=== PATIENT | female | born 1950 | race Caucasian/White ===

== ENCOUNTER → 2017-04-12 | Outpatient (CLI) | payer OTHER, MEDICARE ==
[~2017-04-12] MED LIST: ACETAMINOPHEN1 EAC4 PO; ASPIR 8181 M1 PO; ATIVAN1 MG PO; COLACE100 MG PO; COREG3.125 M1 PO; GLUCOTROL10 MG PO; HYDROCODON-ACE1 EAC7 PO; LEVO-T75 MCG PO; TRANDOLAPRIL4 MG PO; VERAPAMIL ER300 MG PO; ZOCOR20 MG PO
[2017-04-12 10:23] LABS: BASE EXCESS 3.5 mEq/L (-3 to +3); BICARBONATE 28.5 mEq/L (22-26); CARBOXY HGB 2.2 % (0-5); METHEMOGLOBIN 1.4 % (0-1.5); PCO2 44 mm Hg (35-45); PO2 77 mm Hg (80-100); SITE RR; pH 7.42 (7.35-7.45)
[2017-04-12 10:24] LABS: COMMENTS - BLOOD GASES NAC+; FI02 21 %
== END | disposition home or self-care (01) ==
LOC: RES 09:54
PROVIDERS: Thoracic Surgery (Cardiothoracic Vascular Surgery)
DX: R91.8 Other nonspecific abnormal finding of lung field (principal)
CPT/HCPCS: 36600; 82803; 94060; 94726; 94729

== ENCOUNTER → 2017-04-12 | Outpatient (CLI) | payer MEDICARE | END | disposition home or self-care (01) | LOC: CDC 11:51 | DX: Z01.810 Encounter for preprocedural cardiovascular examination (principal); R91.8 Other nonspecific abnormal finding of lung field | CPT/HCPCS: 93000 ==

== ENCOUNTER 2017-04-15 09:45 | Day surgery (SDC) | payer OTHER, MEDICARE ==
[~2017-04-15] VITALS: Ht 162.6 cm; Wt 105.3 kg
[~2017-04-15 09:45] MED LIST changes: -COLACE100 MG PO; -HYDROCODON-ACE1 EAC7 PO
[2017-04-15 10:30] VITALS: BP 181/84
[2017-04-15 10:30] LABS: BASOPHIL COUNT 0.1 K/uL (0-0.1); EOSINOPHIL (%) 1.8 % (0-5); EOSINOPHIL COUNT 0.3 K/uL (0-0.3); HEMATOCRIT 42.4 % (36.0-46.0); IMMATURE GRANULOCYTE (%) 0.5 % (0.0-0.7); IMMATURE GRANULOCYTE COUNT 0.1 K/uL; INSTRUMENT ABS NEUTROPHIL CT 11.1 K/uL; LYMPHOCYTE COUNT 1.4 K/uL (1.0-2.8); MCH 28.6 PG (29.0-34.0); MCHC 30.9 G/DL (30.0-36.0); MCV 92.6 FL (83-99); MEAN PLAT.VOLUME 10.1 uM^3 (9.5-12.4); MONOCYTE (%) 6.9 % (3-12); NEUTROPHIL (%) 80.4 % (45-76); NEUTROPHIL COUNT 11.1 K/uL (1.8-6.4); PLATELET COUNT 399 K/uL (156-360); RBC DIS.WIDTH-CV 14.6 % (11.8-14.6); RBC DIS.WIDTH-SD 49.5 % (39-53); RED BLOOD COUNT 4.58 M/uL (3.80-5.20); WHITE BLOOD COUNT 13.9 K/uL (4.1-10.2)
[2017-04-15 10:37] LABS: INTER. NORMALIZED RATIO 1.1; PROTHROMBIN TIME 11.7 SEC (10.2-12.9)
[2017-04-15 10:52] LABS: ANION GAP 10 MEQ/L (2-14); CHLORIDE 104 MEQ/L (99-109); POTASSIUM 4.7 MEQ/L (3.7-5.4); SAMPLE HEMOLYSIS CHECK 0; SAMPLE ICTERIC CHECK 0; SAMPLE LIPEMIA CHECK 0; SODIUM 141 MEQ/L (136-147); TOTAL BILIRUBIN 0.5 MG/DL (0.0-1.0)
[2017-04-15 10:58] LABS: ALKALINE PHOSPHATASE 119 IU/L (3-129); GFR ESTIMATE (CALCULATED) > 59 mL/min/; GLUCOSE 177 mg/dL (70-99); UREA NITROGEN (BUN) 13 mg/dL (9-23)
[2017-04-15] MEDS ORDERED: COLACE100 MG PO (13:12)
[2017-04-15] MEDS ORDERED: HYDROCODON-ACE1 EAC7 PO (13:12)
[2017-04-15 13:15] LABS: POINT-OF-CARE METER ID UU13113675
[2017-04-15 13:56] VITALS: BP 158/68
[2017-04-15 14:30] VITALS: BP 162/74
== END 2017-04-15 14:52 | disposition home or self-care (01) ==
LOC: SDC
PROVIDERS: Thoracic Surgery (Cardiothoracic Vascular Surgery)
DX: C34.11 Malignant neoplasm of upper lobe, right bronchus or lung (principal); C77.1 Secondary and unspecified malignant neoplasm of intrathoracic lymph nodes; I10 Essential (primary) hypertension; E03.9 Hypothyroidism, unspecified; E11.9 Type 2 diabetes mellitus without complications; E78.5 Hyperlipidemia, unspecified; M48.061 Spinal stenosis, lumbar region without neurogenic claudication; Z80.51 Family history of malignant neoplasm of kidney; E66.9 Obesity, unspecified; Z68.39 Body mass index [BMI] 39.0-39.9, adult; K21.9 Gastro-esophageal reflux disease without esophagitis; Z87.891 Personal history of nicotine dependence; Z79.82 Long term (current) use of aspirin; Z79.84 Long term (current) use of oral hypoglycemic drugs
CPT/HCPCS: 80053; 82948; 85025; 85610; 86850; 86900; 86901; 87070; 87205; 88305; 88341 TC; 88342 TC; J0131; J0690; J1100; J1885; J2250; J2405

== ENCOUNTER → 2017-07-13 | Outpatient (CLI) | payer MEDICARE ==
[~2017-07-13] MED LIST changes: +COLACE100 MG PO; +COMPAZINE10 MG PO; +HYDROCODON-ACE1 EAC7 PO; +XARELTO15 MG PO
== END | disposition home or self-care (01) ==
LOC: CDC 11:16
DX: Z01.810 Encounter for preprocedural cardiovascular examination (principal); R00.0 Tachycardia, unspecified; R94.31 Abnormal electrocardiogram [ECG] [EKG]
CPT/HCPCS: 93000

== ENCOUNTER 2017-07-20 18:57 | Inpatient (IN) | payer OTHER, MEDICARE ==
[~2017-07-20] VITALS: Ht 154.9 cm; Wt 93.0 kg
[~2017-07-20 18:57] MED LIST changes: -XARELTO15 MG PO; +XARELTO20 MG PO
[2017-07-20 19:09] LABS: HEMATOCRIT 29.3 % (36.0-46.0); HEMOGLOBIN 9.5 G/DL (11.9-15.5); MCH 30.4 PG (29.0-34.0); MCHC 32.4 G/DL (30.0-36.0); MCV 93.9 FL (83-99); RBC DIS.WIDTH-CV 21.3 % (11.8-14.6); RBC DIS.WIDTH-SD 71.2 % (39-53); RED BLOOD COUNT 3.12 M/uL (3.80-5.20); WHITE BLOOD COUNT 4.3 K/uL (4.1-10.2)
[2017-07-20 19:11] LABS: BASOPHIL (%) 0.2 % (0-1); EOSINOPHIL (%) 0.9 % (0-5); IMMATURE GRANULOCYTE (%) 0.2 % (0.0-0.7); LYMPHOCYTE COUNT 0.6 K/uL (1.0-2.8); MONOCYTE (%) 16.3 % (3-12); MONOCYTE COUNT 0.7 K/uL (0-0.8); NEUTROPHIL (%) 68.4 % (45-76); NEUTROPHIL COUNT 2.9 K/uL (1.8-6.4); PLATELET COUNT 118 K/uL (156-360)
[2017-07-20 19:19] LABS: AMYLASE 26 IU/L (1-118); CHLORIDE 104 mEq/L (99-109); POTASSIUM 3.9 mEq/L (3.7-5.4); SODIUM 137 mEq/L (136-147)
[2017-07-20 19:21] LABS: GLUCOSE 143 mg/dL (70-99)
[2017-07-20 19:24] LABS: SERUM ETHYL ALCOHOL < 10 mg/dL
[2017-07-20 19:25] LABS: CREATININE 0.7 mg/dL (0.6-1.3); GFR ESTIMATE (CALCULATED) > 59 mL/min/; UREA NITROGEN (BUN) 16 mg/dL (9-23)
[2017-07-20 19:28] LABS: LIPASE 7 U/L (1.0-51.0)
[2017-07-20 19:31] LABS: TROP-I INTERPRETATION INDETERMINATE; TROPONIN-I 0.36 ng/mL (0.0-0.30)
[2017-07-20 19:35] LABS: INTER. NORMALIZED RATIO 1.7
[2017-07-20 19:37] LABS: PTT 29.2 SEC (25-37)
[2017-07-20 21:21] LABS: APPEARANCE CLEAR ((CLEAR)); BILIRUBIN NEGATIVE; BLOOD SMALL; COLOR YELLOW ((YELLOW)); GLUCOSE (STRIP) NEGATIVE; KETONES 20; LEUKOCYTES NEGATIVE; NITRITE NEGATIVE; PROTEIN (STRIP) NEGATIVE; UROBILINOGEN 0.2 MG/DL (0.2-1.0)
[2017-07-20 21:25] LABS: BACTERIA NONE SEEN /HPF; EPITHELIAL CELLS RARE /HPF; MUCUS TRACE /LPF; RED BLOOD CELLS 0-5 /HPF (0-5); UCUL ADDED? NO; WHITE BLOOD CELLS 0-5 /HPF (0-5)
[2017-07-20] MEDS ORDERED: GLIPIZIDE XL10 MG PO (21:45)
[2017-07-20] MEDS ORDERED: CLONAZEPAM1 MG PO (21:50)
[2017-07-20] MEDS ORDERED: BUPROPION XL150 MG PO (21:52)
[2017-07-20] MEDS ORDERED: CILOSTAZOL50 MG PO (21:52)
[2017-07-20] MEDS ORDERED: OMEPRAZOLE40 M1 PO (21:53)
[2017-07-20 21:56] LABS: AMPHETAMINE NEGATIVE (500 ng/mL); BENZODIAZEPINES NEGATIVE (150 ng/mL); COCAINE NEGATIVE (150 ng/mL); METHAMPHETAMINE NEGATIVE (500 ng/mL); OPIATES (MORPHINE) PRESUMPTIVE POSITIVE (100 ng/mL); PHENCYCLIDINE NEGATIVE (25 ng/mL); THC CANNABINOIDS NEGATIVE (50 ng/mL); TRICYCLIC ANTIDEPRESSANTS NEGATIVE (300 ng/mL)
[2017-07-20 21:57] LABS: BARBITURATES NEGATIVE (200 ng/mL); BUPRENORPHINE NEGATIVE (10 ng/mL); METHADONE NEGATIVE (200 ng/mL); OXYCODONE NEGATIVE (100 ng/mL); PROPOXYPHENE NEGATIVE (300 ng/mL)
[2017-07-20 22:03] LABS: SPECIFIC GRAVITY 1.072 (1.000-1.030)
[2017-07-21] VITALS (7 sets, daily range): BP systolic 101–176; BP diastolic 54–87
[2017-07-21 00:13] LABS: HDL CHOLESTEROL 44 MG/DL (Desirable>=50); LDL CHOLESTEROL 116 mg/dL (Desirable<100); NON-HDL CHOLESTEROL 150 mg/dL (Desirable<160); TOTAL CHOLESTEROL 194 mg/dL (Desirable<200); TRIGLYCERIDES 172 MG/DL (Normal: <150)
[2017-07-21 02:08] LABS: TROP-I INTERPRETATION INDETERMINATE; TROPONIN-I 0.39 ng/mL (0.0-0.30)
[2017-07-21 06:57] LABS: HEMOGLOBIN A1c (GLYCOHEMOGLOB) 7.7 % HGB (Below 5.7)
[2017-07-21 07:03] LABS: HEMOGLOBIN 9.2 G/DL (11.9-15.5); MCH 30.1 PG (29.0-34.0); MCHC 31.7 G/DL (30.0-36.0); MCV 94.8 FL (83-99); PLATELET COUNT 117 K/uL (156-360); RBC DIS.WIDTH-CV 21.7 % (11.8-14.6); RBC DIS.WIDTH-SD 73.4 % (39-53); RED BLOOD COUNT 3.06 M/uL (3.80-5.20); WHITE BLOOD COUNT 3.3 K/uL (4.1-10.2)
[2017-07-21 07:34] LABS: TROP-I INTERPRETATION INDETERMINATE; TROPONIN-I 0.37 ng/mL (0.0-0.30)
[2017-07-22 04:26] VITALS: BP 142/66
[2017-07-22 05:58] LABS: BASOPHIL (%) 0.5 % (0-1); EOSINOPHIL (%) 1.2 % (0-5); EOSINOPHIL COUNT 0.1 K/uL (0-0.3); HEMATOCRIT 29.5 % (36.0-46.0); HEMOGLOBIN 9.5 G/DL (11.9-15.5); IMMATURE GRANULOCYTE (%) 0.2 % (0.0-0.7); LYMPHOCYTE (%) 11.5 % (15-42); LYMPHOCYTE COUNT 0.5 K/uL (1.0-2.8); MCH 30.7 PG (29.0-34.0); MCHC 32.2 G/DL (30.0-36.0); MCV 95.5 FL (83-99); MONOCYTE COUNT 0.7 K/uL (0-0.8); NEUTROPHIL (%) 69.6 % (45-76); NEUTROPHIL COUNT 2.8 K/uL (1.8-6.4); PLATELET COUNT 126 K/uL (156-360); RBC DIS.WIDTH-CV 22.1 % (11.8-14.6); RBC DIS.WIDTH-SD 75.3 % (39-53); RED BLOOD COUNT 3.09 M/uL (3.80-5.20)
[2017-07-22 06:20] LABS: CHLORIDE 103 MEQ/L (99-109); CREATININE 0.7 MG/DL (0.6-1.3); GFR ESTIMATE (CALCULATED) > 59 mL/min/; GLUCOSE 160 mg/dL (70-99); POTASSIUM 3.8 MEQ/L (3.7-5.4); SODIUM 139 MEQ/L (136-147); UREA NITROGEN (BUN) 13 mg/dL (9-23)
[2017-07-22 08:18] VITALS: BP 116/77
[2017-07-22 11:57] VITALS: BP 110/22
[2017-07-22 16:23] VITALS: BP 110/61
[2017-07-22 19:09] VITALS: BP 128/75
[2017-07-22 23:31] VITALS: BP 127/59
[2017-07-23 04:30] VITALS: BP 139/63
[2017-07-23 08:20] VITALS: BP 104/59
[2017-07-23] MEDS ORDERED: ZOCOR20 MG PO (12:27)
[2017-07-23] MEDS ORDERED: LOPRESSOR25 MG PO (12:27)
[2017-07-23] MEDS ORDERED: ASPIRIN EC325 MG PO (12:28)
[2017-07-23] MEDS ORDERED: LEVEMIR100 UNIT/2 SC (12:28)
[2017-07-23] MEDS ORDERED: LISINOPRIL40 MG PO ×2 (12:28→13:55)
[2017-07-23 12:34] VITALS: BP 104/57
[2017-07-23] MEDS ORDERED: FAMOTIDINE40 MG PO (13:23)
[2017-07-23] MEDS ORDERED: LIPITOR80 MG PO (14:16)
[2017-07-23] MEDS ORDERED: NOVOLOG 10100 UNITS/ SC (14:19)
[2017-07-23] MEDS ORDERED: APRESOLINE10 MG IV (14:21)
[2017-07-23] MEDS ORDERED: TYLENOL REGULA325 MG PO (14:23)
[2017-07-23] MEDS ORDERED: COREG3.125 M1 PO (14:26)
[2017-07-23] MEDS ORDERED: TRANDOLAPRIL4 MG PO (14:27)
[2017-07-23] MEDS ORDERED: COMPAZINE10 MG PO (14:29)
[2017-07-23] MEDS ORDERED: OMEPRAZOLE40 M1 PO (14:30)
[2017-07-23] MEDS ORDERED: ZESTRIL20 MG PO (14:31)
== END 2017-07-23 14:12 | DRG 65 ==
LOC: EME → EDBD 18:57 → EME 18:57 → EDOF 22:34 → 4EAST 22:34 → ENRESERV 22:38 → 4EAST 07-21 00:37
PROVIDERS: Hospitalist; Internal Medicine
DX: I63.40 Cerebral infarction due to embolism of unspecified cerebral artery (principal); G81.91 Hemiplegia, unspecified affecting right dominant side; R13.12 Dysphagia, oropharyngeal phase; R47.01 Aphasia; C79.51 Secondary malignant neoplasm of bone; I47.1 Supraventricular tachycardia; I48.0 Paroxysmal atrial fibrillation; E11.51 Type 2 diabetes mellitus with diabetic peripheral angiopathy without gangrene; E11.621 Type 2 diabetes mellitus with foot ulcer; L97.519 Non-pressure chronic ulcer of other part of right foot with unspecified severity; I10 Essential (primary) hypertension; E78.2 Mixed hyperlipidemia; I25.10 Atherosclerotic heart disease of native coronary artery without angina pectoris; I70.235 Atherosclerosis of native arteries of right leg with ulceration of other part of foot; E03.9 Hypothyroidism, unspecified; F39 Unspecified mood [affective] disorder; R29.810 Facial weakness; R29.709 NIHSS score 9; Z79.01 Long term (current) use of anticoagulants; Z79.82 Long term (current) use of aspirin; Z79.84 Long term (current) use of oral hypoglycemic drugs; Z85.118 Personal history of other malignant neoplasm of bronchus and lung; Z86.718 Personal history of other venous thrombosis and embolism; Z87.891 Personal history of nicotine dependence
CPT/HCPCS: 70450; 70496; 70498; 70553; 74230; 80047; 80048; 80061; 81003; 82150; 82948; 83036; 83690; 84484; 84999; 85025; 85027; 85610; 85730; 86850; 86900; 86901; 92611 GN; 93005; 93306; 94799; 97530 GO; 97530 GP; 99281; 99285; G0480; J0360

== ENCOUNTER 2017-07-23 10:49 | Inpatient (IN) | payer OTHER, MEDICARE ==
[~2017-07-23] VITALS: Ht 162.6 cm; Wt 90.3 kg
[~2017-07-23 10:49] MED LIST changes: +BUPROPION XL150 MG PO; +CILOSTAZOL50 MG PO; +CLONAZEPAM1 MG PO; +GLIPIZIDE XL10 MG PO; +OMEPRAZOLE40 M1 PO
[2017-07-23] MEDS ORDERED: ZOCOR20 MG PO (12:27)
[2017-07-23] MEDS ORDERED: LOPRESSOR25 MG PO (12:27)
[2017-07-23] MEDS ORDERED: ASPIRIN EC325 MG PO (12:28)
[2017-07-23] MEDS ORDERED: LISINOPRIL40 MG PO ×2 (12:28→13:55)
[2017-07-23] MEDS ORDERED: LEVEMIR100 UNIT/2 SC (12:28)
[2017-07-23] MEDS ORDERED: FAMOTIDINE40 MG PO (13:23)
[2017-07-23] MEDS ORDERED: LIPITOR80 MG PO (14:16)
[2017-07-23] MEDS ORDERED: NOVOLOG 10100 UNITS/ SC (14:19)
[2017-07-23 14:21] VITALS: BP 96/55
[2017-07-23] MEDS ORDERED: APRESOLINE10 MG IV (14:21)
[2017-07-23] MEDS ORDERED: TYLENOL REGULA325 MG PO (14:23)
[2017-07-23] MEDS ORDERED: COREG3.125 M1 PO (14:26)
[2017-07-23] MEDS ORDERED: TRANDOLAPRIL4 MG PO (14:27)
[2017-07-23] MEDS ORDERED: COMPAZINE10 MG PO (14:29)
[2017-07-23] MEDS ORDERED: OMEPRAZOLE40 M1 PO (14:30)
[2017-07-23] MEDS ORDERED: ZESTRIL20 MG PO (14:31)
[2017-07-24 00:23] VITALS: BP 106/56
[2017-07-24 06:03] VITALS: BP 143/86
[2017-07-24 07:51] LABS: HEMATOCRIT 29.9 % (36.0-46.0); HEMOGLOBIN 9.6 G/DL (11.9-15.5); MCH 30.9 PG (29.0-34.0); MCHC 32.1 G/DL (30.0-36.0); MCV 96.1 FL (83-99); PLATELET COUNT 142 K/uL (156-360); RBC DIS.WIDTH-CV 21.7 % (11.8-14.6); RBC DIS.WIDTH-SD 75.3 % (39-53); RED BLOOD COUNT 3.11 M/uL (3.80-5.20); WHITE BLOOD COUNT 5.6 K/uL (4.1-10.2)
[2017-07-24 08:40] LABS: ALBUMIN 3.3 G/DL (3.2-4.8); ALKALINE PHOSPHATASE 98 IU/L (3-129); ALT (GPT) 16 IU/L (3-49); AST (GOT) 19 IU/L (2-34); CHLORIDE 105 MEQ/L (99-109); CREATININE 0.8 MG/DL (0.6-1.3); GFR ESTIMATE (CALCULATED) > 59 mL/min/; GLUCOSE 162 mg/dL (70-99); SODIUM 142 MEQ/L (136-147); TOTAL BILIRUBIN 0.8 MG/DL (0.0-1.0); TOTAL PROTEIN 6.2 G/DL (6.4-8.3)
[2017-07-24 08:42] LABS: UREA NITROGEN (BUN) 26 mg/dL (9-23)
[2017-07-24 15:02] VITALS: BP 102/51
[2017-07-25 06:24] VITALS: BP 147/66
[2017-07-25 06:32] LABS: HEMOGLOBIN 9.8 G/DL (11.9-15.5); MCH 30.5 PG (29.0-34.0); MCHC 31.6 G/DL (30.0-36.0); MCV 96.6 FL (83-99); PLATELET COUNT 152 K/uL (156-360); RBC DIS.WIDTH-CV 21.5 % (11.8-14.6); RBC DIS.WIDTH-SD 74.7 % (39-53); RED BLOOD COUNT 3.21 M/uL (3.80-5.20)
[2017-07-25 13:20] LABS: ALBUMIN 3.4 G/DL (3.2-4.8); ALKALINE PHOSPHATASE 108 IU/L (3-129); ALT (GPT) 18 IU/L (3-49); AST (GOT) 19 IU/L (2-34); CHLORIDE 104 MEQ/L (99-109); CREATININE 0.7 MG/DL (0.6-1.3); GFR ESTIMATE (CALCULATED) > 59 mL/min/; GLUCOSE 221 mg/dL (70-99); POTASSIUM 3.9 MEQ/L (3.7-5.4); SODIUM 141 MEQ/L (136-147); TOTAL BILIRUBIN 0.7 MG/DL (0.0-1.0); TOTAL PROTEIN 6.4 G/DL (6.4-8.3); UREA NITROGEN (BUN) 26 mg/dL (9-23)
[2017-07-25 15:25] VITALS: BP 120/59
== END 2017-07-25 17:31 | DRG 57 ==
LOC: 3WEST 10:49 → ENRESERV 07-25 11:24 → CANRESERV 07-25 11:24 → 3WEST 07-25 17:31
PROVIDERS: Hospitalist; Physical Medicine & Rehabilitation Pain Medicine
PROC: F07M0ZZ Range of Motion and Joint Mobility Treatment of Musculoskeletal System - Whole Body (ICD-10-PCS; principal; 2017-07-23)
DX: I69.351 Hemiplegia and hemiparesis following cerebral infarction affecting right dominant side (principal); I69.320 Aphasia following cerebral infarction; I69.391 Dysphagia following cerebral infarction; R13.10 Dysphagia, unspecified; I69.322 Dysarthria following cerebral infarction; R26.2 Difficulty in walking, not elsewhere classified; R41.82 Altered mental status, unspecified; B37.0 Candidal stomatitis; C34.91 Malignant neoplasm of unspecified part of right bronchus or lung; C79.51 Secondary malignant neoplasm of bone; M84.58XA Pathological fracture in neoplastic disease, other specified site, initial encounter for fracture; K59.00 Constipation, unspecified; K64.8 Other hemorrhoids; K92.1 Melena; D64.9 Anemia, unspecified; D69.6 Thrombocytopenia, unspecified; I10 Essential (primary) hypertension; E78.00 Pure hypercholesterolemia, unspecified; E03.9 Hypothyroidism, unspecified; R74.8 Abnormal levels of other serum enzymes; E66.9 Obesity, unspecified; Z68.34 Body mass index [BMI] 34.0-34.9, adult; E11.9 Type 2 diabetes mellitus without complications; Z92.21 Personal history of antineoplastic chemotherapy; Z79.01 Long term (current) use of anticoagulants; Z79.4 Long term (current) use of insulin; Z79.82 Long term (current) use of aspirin
CPT/HCPCS: 70450; 71046; 80053; 81003; 82948; 85027; 92523 GN; 97530 GP; J1815

== ENCOUNTER 2017-07-25 11:47 | Inpatient (IN) | payer OTHER, MEDICARE ==
[~2017-07-25 11:47] MED LIST changes: +APRESOLINE10 MG IV; +ASPIRIN EC325 MG PO; +FAMOTIDINE40 MG PO; +LEVEMIR100 UNIT/2 SC; +LIPITOR80 MG PO; +LISINOPRIL40 MG PO; +LOPRESSOR25 MG PO; +NOVOLOG 10100 UNITS/ SC; +TYLENOL REGULA325 MG PO; +ZESTRIL20 MG PO
[2017-07-25 19:41] VITALS: BP 114/65
[2017-07-25 20:20] LABS: HEMATOCRIT 30.3 % (36.0-46.0); HEMOGLOBIN 9.7 G/DL (11.9-15.5); MCV 96.5 FL (83-99)
[2017-07-25 20:35] VITALS: BP 102/62
[2017-07-26] VITALS (7 sets, daily range): BP systolic 122–150; BP diastolic 55–97
[2017-07-26 05:40] LABS: HEMATOCRIT 29.2 % (36.0-46.0); HEMOGLOBIN 9.2 G/DL (11.9-15.5); MCH 30.6 PG (29.0-34.0); MCHC 31.5 G/DL (30.0-36.0); PLATELET COUNT 169 K/uL (156-360); RBC DIS.WIDTH-SD 76.4 % (39-53); RED BLOOD COUNT 3.01 M/uL (3.80-5.20); WHITE BLOOD COUNT 6.4 K/uL (4.1-10.2)
[2017-07-26 06:05] LABS: CHLORIDE 104 MEQ/L (99-109); CREATININE 0.9 MG/DL (0.6-1.3); GFR ESTIMATE (CALCULATED) > 59 mL/min/; GLUCOSE 150 mg/dL (70-99); POTASSIUM 4.1 MEQ/L (3.7-5.4); SODIUM 142 MEQ/L (136-147); UREA NITROGEN (BUN) 30 mg/dL (9-23)
[2017-07-27 03:36] VITALS: BP 122/57
[2017-07-27 07:36] VITALS: BP 133/67
[2017-07-27 12:04] VITALS: BP 138/67
[2017-07-27 13:43] LABS: HDL CHOLESTEROL 35 MG/DL (Desirable>=50); LDL CHOLESTEROL 119 mg/dL (Desirable<100); NON-HDL CHOLESTEROL 156 mg/dL (Desirable<160); TOTAL CHOLESTEROL 191 mg/dL (Desirable<200); TRIGLYCERIDES 187 MG/DL (Normal: <150)
[2017-07-27 14:06] LABS: HEMOGLOBIN A1c (GLYCOHEMOGLOB) 7.2 % (Below 5.7)
[2017-07-27 15:32] VITALS: BP 135/72
[2017-07-27 20:06] VITALS: BP 140/71; BP 164/83
[2017-07-27 23:43] VITALS: BP 124/74
[2017-07-28 04:31] VITALS: BP 142/72
[2017-07-28 08:08] VITALS: BP 159/70
[2017-07-28 16:34] VITALS: BP 116/60
[2017-07-29 00:43] VITALS: BP 112/58
[2017-07-29 07:25] VITALS: BP 164/78
[2017-07-29] MEDS ORDERED: MYCOSTATIN 100,60 ML MM (09:17)
[2017-07-29] MEDS ORDERED: ANUCORT-HC25 MG PR (09:20)
== END 2017-07-29 15:10 | DRG 64 ==
LOC: 4EAST 11:47 → ENRESERV 11:48 → CANRESERV 11:48 → ENRESERV 11:55 → 4EAST 12:23 → ENRESERV 15:36 → 3EAST 16:44 → 5SOUTH 16:44 → 3EAST 17:30 → ENRESERV 07-26 09:37 → 5SOUTH 07-26 15:27 → ENPENDDIS 07-29 10:00 → 5SOUTH 07-29 15:10
PROVIDERS: Hospitalist; Specialist
DX: I61.8 Other nontraumatic intracerebral hemorrhage (principal); G93.40 Encephalopathy, unspecified; G81.91 Hemiplegia, unspecified affecting right dominant side; R47.01 Aphasia; C79.51 Secondary malignant neoplasm of bone; M84.58XA Pathological fracture in neoplastic disease, other specified site, initial encounter for fracture; C34.11 Malignant neoplasm of upper lobe, right bronchus or lung; K92.1 Melena; F05 Delirium due to known physiological condition; I67.82 Cerebral ischemia; R29.810 Facial weakness; E78.5 Hyperlipidemia, unspecified; E78.00 Pure hypercholesterolemia, unspecified; E03.9 Hypothyroidism, unspecified; I10 Essential (primary) hypertension; I48.2 Chronic atrial fibrillation; I73.9 Peripheral vascular disease, unspecified; I77.1 Stricture of artery; K64.8 Other hemorrhoids; R13.12 Dysphagia, oropharyngeal phase; I25.10 Atherosclerotic heart disease of native coronary artery without angina pectoris; D63.0 Anemia in neoplastic disease; M48.00 Spinal stenosis, site unspecified; E66.3 Overweight; I67.89 Other cerebrovascular disease; E11.9 Type 2 diabetes mellitus without complications; Z98.62 Peripheral vascular angioplasty status; Z79.01 Long term (current) use of anticoagulants; Z86.718 Personal history of other venous thrombosis and embolism; Z68.33 Body mass index [BMI] 33.0-33.9, adult; Z92.21 Personal history of antineoplastic chemotherapy; Z92.3 Personal history of irradiation; Z86.73 Personal history of transient ischemic attack (TIA), and cerebral infarction without residual deficits
CPT/HCPCS: 70450; 80048; 80061; 82948; 83036; 85014; 85018; 85027; 92507 GN; 92610 GN; J1815

== ENCOUNTER 2017-08-01 09:55 | Inpatient (IN) | payer OTHER, MEDICARE ==
[~2017-08-01] VITALS: Ht 172.7 cm; Wt 99.3 kg
[~2017-08-01 09:55] MED LIST changes: +ANUCORT-HC25 MG PR; +MYCOSTATIN 100,60 ML MM
[2017-08-01 10:53] LABS: BICARBONATE 26.5 mEq/L (22-26); CARBOXY HGB 2.3 % (0-5); PCO2 40 mm Hg (35-45); PO2 57 mm Hg (80-100); pH 7.43 (7.35-7.45)
[2017-08-01 10:54] LABS: COMMENTS - BLOOD GASES A+C+; DEVICE RA; SITE RR; TOTAL RESP RATE 18 resp/min
[2017-08-01 11:12] LABS: BASOPHIL (%) 0.3 % (0-1); EOSINOPHIL (%) 0.5 % (0-5); EOSINOPHIL COUNT 0.1 K/uL (0-0.3); HEMATOCRIT 31.3 % (36.0-46.0); HEMOGLOBIN 9.9 G/DL (11.9-15.5); IMMATURE GRANULOCYTE (%) 0.9 % (0.0-0.7); LYMPHOCYTE (%) 9.4 % (15-42); LYMPHOCYTE COUNT 0.9 K/uL (1.0-2.8); MCH 31.1 PG (29.0-34.0); MCHC 31.6 G/DL (30.0-36.0); MCV 98.4 FL (83-99); MONOCYTE (%) 11.9 % (3-12); MONOCYTE COUNT 1.1 K/uL (0-0.8); NEUTROPHIL COUNT 7.1 K/uL (1.8-6.4); PLATELET COUNT 172 K/uL (156-360); RBC DIS.WIDTH-CV 21.6 % (11.8-14.6); RBC DIS.WIDTH-SD 78.3 % (39-53); RED BLOOD COUNT 3.18 M/uL (3.80-5.20); WHITE BLOOD COUNT 9.2 K/uL (4.1-10.2)
[2017-08-01 11:23] LABS: ALBUMIN 3.5 g/dL (3.2-4.8); CHLORIDE 106 mEq/L (99-109); POTASSIUM 4.8 mEq/L (3.7-5.4); SODIUM 143 mEq/L (136-147)
[2017-08-01 11:25] LABS: GLUCOSE 177 mg/dL (70-99); TOTAL PROTEIN 6.7 g/dL (6.4-8.3)
[2017-08-01 11:27] LABS: TOTAL BILIRUBIN 0.5 mg/dL (0.0-1.0)
[2017-08-01 11:29] LABS: ALKALINE PHOSPHATASE 126 IU/L (3-129); GFR ESTIMATE (CALCULATED) 19 mL/min/
[2017-08-01 11:30] LABS: CREATININE 2.7 mg/dL (0.6-1.3); UREA NITROGEN (BUN) 49 mg/dL (9-23)
[2017-08-01 11:31] LABS: AST (GOT) 146 IU/L (2-34)
[2017-08-01 11:32] LABS: ALT (GPT) 120 IU/L (3-49)
[2017-08-01 11:33] LABS: TROP-I INTERPRETATION INDETERMINATE; TROPONIN-I 0.41 ng/mL (0.0-0.30)
[2017-08-01 12:51] LABS: APPEARANCE TURBID ((CLEAR)); BILIRUBIN NEGATIVE; BLOOD NEGATIVE; COLOR AMBER ((YELLOW)); GLUCOSE (STRIP) NEGATIVE; KETONES NEGATIVE; LEUKOCYTES NEGATIVE; NITRITE NEGATIVE; PROTEIN (STRIP) 100; SPECIFIC GRAVITY 1.024 (1.000-1.030); UROBILINOGEN 0.2 MG/DL (0.2-1.0)
[2017-08-01 13:20] LABS: EPITHELIAL CELLS 1+ /HPF; MUCUS 1+ /LPF
[2017-08-01 13:21] LABS: HYALINE CASTS 20-30 /LPF
[2017-08-01 13:22] LABS: AMORPHOUS URATES CRYSTALS 1+; BACTERIA NONE SEEN /HPF; CALCIUM OXALATE CRYSTALS 2+ /HPF; FINE GRANULAR CASTS 0-5 /LPF; RED BLOOD CELLS 0-5 /HPF (0-5); UCUL ADDED? NO; WHITE BLOOD CELLS 0-5 /HPF (0-5)
[2017-08-01] MEDS ORDERED: LIPITOR80 MG PO (15:23)
[2017-08-01] MEDS ORDERED: LOPRESSOR25 MG PO (15:24)
[2017-08-01] MEDS ORDERED: COLACE100 MG PO (15:24)
[2017-08-01] MEDS ORDERED: NOVOLOG PE100 UNITS/ SC (15:25)
[2017-08-01] MEDS ORDERED: LEVO-T75 MCG PO (15:25)
[2017-08-01] MEDS ORDERED: XARELTO20 MG PO (15:26)
[2017-08-01] MEDS ORDERED: GLUCOTROL10 MG PO (15:27)
[2017-08-01] MEDS ORDERED: PRINIVIL20 MG PO (15:28)
[2017-08-01] MEDS ORDERED: LEVEMIR FL100 UNIT/1 SC (15:28)
[2017-08-01] MEDS ORDERED: OMEPRAZOLE40 M1 PO (15:28)
[2017-08-01] MEDS ORDERED: NYSTATIN100000 UN1 PO (15:29)
[2017-08-01] MEDS ORDERED: PRILOSEC20 MG PO (15:30)
[2017-08-01] MEDS ORDERED: ANUCORT-HC25 MG PR (15:30)
[2017-08-01] MEDS ORDERED: COMPAZINE10 MG PO (15:32)
[2017-08-01] MEDS ORDERED: TYLENOL REGULA325 MG PO (15:32)
[2017-08-01] MEDS ORDERED: MILK OF MAGN PO (15:33)
[2017-08-01] MEDS ORDERED: DULCOLAX10 MG PR (15:34)
[2017-08-01] MEDS ORDERED: ENEMA133 M2 PR (15:34)
[2017-08-01 19:40] LABS: TROP-I INTERPRETATION NEGATIVE; TROPONIN-I 0.19 ng/mL (0.0-0.30)
[2017-08-02 01:24] LABS: TROP-I INTERPRETATION NEGATIVE
[2017-08-02 06:24] LABS: HEMATOCRIT 30.7 % (36.0-46.0); HEMOGLOBIN 9.8 G/DL (11.9-15.5); MCH 31.3 PG (29.0-34.0); MCHC 31.9 G/DL (30.0-36.0); MCV 98.1 FL (83-99); PLATELET COUNT 152 K/uL (156-360); RBC DIS.WIDTH-CV 21.5 % (11.8-14.6); RBC DIS.WIDTH-SD 77.3 % (39-53); RED BLOOD COUNT 3.13 M/uL (3.80-5.20)
[2017-08-02 06:51] LABS: CHLORIDE 108 MEQ/L (99-109); POTASSIUM 4.5 MEQ/L (3.7-5.4); SODIUM 143 MEQ/L (136-147)
[2017-08-02 06:56] LABS: GFR ESTIMATE (CALCULATED) 58 mL/min/; GLUCOSE 160 mg/dL (70-99); UREA NITROGEN (BUN) 47 mg/dL (9-23)
[2017-08-02 19:59] VITALS: BP 120/72
== END 2017-08-02 23:07 | DRG 64 ==
LOC: EME 09:55 → EDOF 14:32 → ENRESERV 14:41 → CANRESERV 15:02 → ENRESERV 15:02 → EDOF 16:51 → ENRESERV 08-02 15:33 → EDOF 08-02 16:08 → ENRESERV 08-02 17:29 → CANRESERV 08-02 17:30 → 5SOUTH 08-02 20:07
PROVIDERS: Emergency Medicine; Hospitalist; Internal Medicine
DX: I63.411 Cerebral infarction due to embolism of right middle cerebral artery (principal); I65.22 Occlusion and stenosis of left carotid artery; G82.50 Quadriplegia, unspecified; N17.9 Acute kidney failure, unspecified; E86.0 Dehydration; R47.01 Aphasia; R13.10 Dysphagia, unspecified; Z51.5 Encounter for palliative care; Z66 Do not resuscitate; R74.0 Nonspecific elevation of levels of transaminase and lactic acid dehydrogenase [LDH]; R41.82 Altered mental status, unspecified; I48.91 Unspecified atrial fibrillation; D64.9 Anemia, unspecified; I10 Essential (primary) hypertension; E03.9 Hypothyroidism, unspecified; E78.5 Hyperlipidemia, unspecified; I25.10 Atherosclerotic heart disease of native coronary artery without angina pectoris; I73.9 Peripheral vascular disease, unspecified; K59.00 Constipation, unspecified; L30.9 Dermatitis, unspecified; F41.9 Anxiety disorder, unspecified; E66.9 Obesity, unspecified; Z68.33 Body mass index [BMI] 33.0-33.9, adult; Z79.01 Long term (current) use of anticoagulants; Z85.118 Personal history of other malignant neoplasm of bronchus and lung; Z86.718 Personal history of other venous thrombosis and embolism; Z86.73 Personal history of transient ischemic attack (TIA), and cerebral infarction without residual deficits; Z87.891 Personal history of nicotine dependence; Z92.21 Personal history of antineoplastic chemotherapy; Z92.3 Personal history of irradiation
CPT/HCPCS: 36600; 70450; 70551; 71045; 76770; 80048; 80053; 81003; 82803; 82948; 83605; 84484; 85025; 85027; 87040; 93005; 99281; 99285; J7030; S0028